=== PATIENT | male | born 1950 | race Two or more races ===

== ENCOUNTER 2019-04-04 10:42 | Outpatient (CLI) | payer OTHER ==
[~2019-04-04 10:42] MED LIST: JANUMET 50-501 UDTAB PO; LIPITOR20 MG PO; MICARDIS20 MG PO; MICROZIDE12.5 MG PO; PREVACID 15MG15 MG PO; TOPROL XL25 M1 PO
== END 2019-04-04 10:54 | disposition home or self-care (01) ==
LOC: RAD 10:42
DX: M79.642 Pain in left hand (principal)

== ENCOUNTER 2020-08-01 11:30 | Outpatient (CLI) | payer OTHER | END 2020-08-01 11:38 | disposition home or self-care (01) | LOC: RAD 11:30 | PROVIDERS: ATTEND Orthopaedic Surgery | DX: Q66.89 Other specified congenital deformities of feet (principal); M79.671 Pain in right foot ==

== ENCOUNTER 2021-10-20 10:07 | Outpatient (CLI) | payer OTHER | END 2021-10-20 10:17 | disposition home or self-care (01) | LOC: LAB 10:07 | PROVIDERS: ATTEND Orthopaedic Surgery | DX: D64.9 Anemia, unspecified (principal); D68.8 Other specified coagulation defects; E88.9 Metabolic disorder, unspecified; N39.0 Urinary tract infection, site not specified; A49.02 Methicillin resistant Staphylococcus aureus infection, unspecified site ==

== ENCOUNTER 2021-10-31 07:58 | Day surgery (SDC) | payer OTHER | END 2021-10-31 15:55 | disposition home or self-care (01) | LOC: CIR.AMB 07:58 | PROVIDERS: ATTEND Orthopaedic Surgery | DX: M75.121 Complete rotator cuff tear or rupture of right shoulder, not specified as traumatic (principal); M24.111 Other articular cartilage disorders, right shoulder; M75.41 Impingement syndrome of right shoulder; M19.011 Primary osteoarthritis, right shoulder ==

== ENCOUNTER → 2022-09-08 07:26 | Outpatient (CLI) | payer OTHER | END | disposition home or self-care (01) | LOC: LAB 07:26 | PROVIDERS: ATTEND Orthopaedic Surgery | DX: I10 Essential (primary) hypertension (principal); Z76.89 Persons encountering health services in other specified circumstances; D64.9 Anemia, unspecified; E88.9 Metabolic disorder, unspecified; D68.8 Other specified coagulation defects; N39.0 Urinary tract infection, site not specified; A49.02 Methicillin resistant Staphylococcus aureus infection, unspecified site; E11.9 Type 2 diabetes mellitus without complications ==

== ENCOUNTER 2023-03-08 10:52 | Outpatient (CLI) | payer OTHER | END 2023-03-08 11:00 | disposition home or self-care (01) | LOC: RAD 10:52 | PROVIDERS: ATTEND Orthopaedic Surgery | DX: M25.551 Pain in right hip (principal); M25.552 Pain in left hip ==

== ENCOUNTER → 2024-06-20 | Outpatient (CLI) | payer OTHER | END | disposition home or self-care (01) | LOC: MRI 12:06 | PROVIDERS: ATTEND Internal Medicine | DX: I63.9 Cerebral infarction, unspecified (principal); G51.9 Disorder of facial nerve, unspecified | CPT/HCPCS: 70551 ==

== ENCOUNTER 2024-09-08 10:05 | Outpatient (CLI) | payer OTHER | END 2024-09-08 10:15 | disposition home or self-care (01) | LOC: RAD 10:05 | PROVIDERS: ATTEND Orthopaedic Surgery | DX: Q65.89 Other specified congenital deformities of hip (principal); M25.851 Other specified joint disorders, right hip; M25.852 Other specified joint disorders, left hip ==

== ENCOUNTER 2024-10-03 05:30 | Day surgery (SDC) | payer OTHER ==
[2024-09-21 09:07] LABS: HEMOGLOBIN 15.9 g/dL (13-16.00); MEAN CELL VOLUME 95.7 fL (80.0-100.00); MEAN CORPUSCULAR HEMOGLOBIN 33.8 pg (27.00-32.0); MEAN CORPUSCULAR HGB CONC 35.3 g/dl (32.0-36.0); PLATELET COUNT 227 K/uL (150-450); RED BLOOD COUNT 4.71 M/uL (4.00-6.00); RED CELL DISTRIBUTION WIDTH 13.6 % (11.5-14.5)
[2024-09-21 09:09] VITALS: BP 130/81
[2024-09-21 09:31] LABS: INR 0.97; PARTIAL THROMBOPLASTIN TIME 25.1 SECONDS (22.0-34.0); PROTHROMBIN TIME 10.6 SECONDS (9.0-11.5)
[2024-09-21 09:46] LABS: ALBUMIN 4.2 gm/dL (3.4-5.0); BILIRUBIN TOTAL 1.11 mg/dL (0.3-1.2); CALCIUM 9.7 mg/dL (8.5-10.1); CREATININE SERUM 1.13 mg/dL (0.70-1.30); GFR 63.79; GLOBULINA 3.1 G/DL (2.4-3.5); POTASSIUM 4.71 mEq/L (3.5-5.1); TOTAL PROTEIN 7.3 gm/dL (6.4-8.2)
[2024-09-21 10:03] LABS: PH,URINE 5.5 (5.0-8.0); URINE APPEARANCE Clear; URINE BILIRRUBIN Negative (NEGATIVE); URINE BLOOD Negative; URINE COLOR Yellow; URINE GLUCOSE Negative (NEGATIVE); URINE KETONE Negative (NEGATIVE); URINE LEUKOCYTE Negative; URINE NITRATE Negative; URINE PROTEIN Negative (NEGATIVE); URINE UROBILINOGEN 0.2 E.U./dl
[2024-09-21 10:06] LABS: URINE BACTERIA 4.8 uL (0.0-1933); URINE EPITHELIAL CELLS 2.6 uL (0.0-38.8); URINE RBC 4.7 uL (0.0-20.8)
[~2024-10-03] VITALS: Ht 167.6 cm; Wt 79.4 kg
[2024-10-03] MEDS ORDERED: CEFAZOLIN SODIUM 1,000 MG VIAL ONE (06:59)
[2024-10-03] MEDS ORDERED: MORPHINE SULFATE 4 MG/ML VIAL IV ONE ×2 (09:55→10:25)
== END 2024-10-03 11:40 | disposition home or self-care (01) ==
LOC: CIR.AMB 05:30
PROVIDERS: ATTEND Surgery
DX: K80.10 Calculus of gallbladder with chronic cholecystitis without obstruction (principal); Z91.030 Bee allergy status; E11.9 Type 2 diabetes mellitus without complications; I10 Essential (primary) hypertension; E78.5 Hyperlipidemia, unspecified